=== PATIENT | male | born 1960 | race African-American/Black ===

== ENCOUNTER 2024-06-07 11:10 | Emergency (ER) | payer MEDICAID ==
[~2024-06-07] VITALS: Ht 180.3 cm; Wt 90.7 kg
[2024-06-07 11:14] VITALS: O2SAT 98
[2024-06-07 11:18] VITALS: BP 128/64; PULSE 57; RESP 14; TEMP 36.7; O2SAT 98
== END 2024-06-07 12:44 | disposition left against medical advice (07) ==
LOC: ER 11:10
DX: Z53.21 Procedure and treatment not carried out due to patient leaving prior to being seen by health care provider (principal)